=== PATIENT | male | born 1985 | race Two or more races ===

== ENCOUNTER 2022-01-31 02:29 | Emergency (ER) | payer OTHER ==
[~2022-01-31] VITALS: Ht 157.5 cm; Wt 149.7 kg
[2022-01-31 02:30] VITALS: BP 130/75
[2022-01-31] MEDS ORDERED: TETANUS-DIPTH-ACEL PERTUSSIS 0.5ML SYR Tdap IM ONE (03:30)
== END 2022-01-31 04:56 | disposition home or self-care (01) ==
LOC: ER 02:29
DX: S61.211A Laceration without foreign body of left index finger without damage to nail, initial encounter (principal); X58.XXXA Exposure to other specified factors, initial encounter; Y93.89 Activity, other specified; Y92.89 Other specified places as the place of occurrence of the external cause; Y99.8 Other external cause status
CPT/HCPCS: 90471; 90715